=== PATIENT | female | born 1940 | race Caucasian/White ===

== ENCOUNTER → 2017-05-04 | Outpatient (CLI) | payer OTHER, MEDICAID ==
[2015-04-04 09:07] VITALS: BP 139/66
--- NOTE | 2017-05-04 15:24 | VAS ---
HISTORY: Carotid arterial disease. Study: Carotid ultrasound. Comparison: None available. Technique: Multiple maciel scale and color flow Doppler images of the right and left carotid arterial system were obtained. The vertebral arterial system was evaluated as well. Findings: Normal color flow Doppler is seen throughout the right and left carotid arterial system. Calcific p laque within the bilateral carotid bulbs. No hemodynamically significant stenosis is seen based on v elocity criteria. The right and left vertebral arteries demonstrate antegrade flow. IMPRESSION: 1. No hemodynamically significant stenosis. 2. Plaque burden as above. Reported By:
--- NOTE | 2017-05-05 10:32 | MG ---
HISTORY: SCREENING Comparison: November and December of 2015 as well as a remote exam from 2005 FINDINGS: Bilateral CC and MLO projections of the right and left breast were obtained. Heterogeneously dense fibroglandular tissue is seen to be present. There is no new developing mass or architectural disto rtion bilaterally. The previously described left breast nodule has resolved or nearly completely res olved. The previously described grouping of microcalcifications far posteriorly on the right superi or to the plane of the nipple on the MLO view is incompletely evaluated. Additionally, there is a ne w grouping of microcalcifications at approximately 11 o'clock at mid depth for which further evaluat ion is also recommended. There is an additional stable grouping of benign course and dystrophic micr ocalcifications at approximately 9 o'clock posteriorly. No skin thickening or nipple retraction is a ppreciated. No pathological lymphadenopathy can be identified. IMPRESSION: 2 groupings of right breast microcalcifications for which follow up spot magnification is recommended. ACR CATEGORY 0 - assessment incomplete; additional imaging recommended. Diagnostic CAD was utilized and reviewed. * 0 (ZERO) - ASSESSMENT INCOMPLETE; ADDITIONAL IMAGING IS NEEDED. * 1/1 (ONE) - NEGATIVE. * 2/II (TWO) - BENIGN FINDINGS. * 3/III (THREE) - PROBABLY BENIGN FINDING; SHORT INTERVAL FOLLOW-UP SUGGESTED. * 4/IV (FOUR) - SUSPICIOUS ABNORMALITY; BIOPSY SHOULD BE CONSIDERED. * 5/V (FIVE) - HIGHLY SUSPICIOUS OF MALIGNANCY; BIOPSY SHOULD BE PERFORMED. A NEGATIVE X-RAY REPORT SHOULD NOT DELAY BIOPSY IF A DOMINANT OR CLINICALLY SUSPICIOUS MASS IS PRESENT; 4 TO 8 PERCENT OF CANCERS ARE NOT IDENTIFIED BY X-RAY. A NEG ATIVE REPORT MAY REINFORCE THE CLINICAL IMPRESSION. ADENOSIS AND DENSE BREASTS MAY OBSCURE AN UNDER LYING NEOPLASM. Reported By:
== END ==
LOC: RAD 10:24
PROVIDERS: ATTEND Internal Medicine
DX: Z12.31 Encounter for screening mammogram for malignant neoplasm of breast (principal); I77.89 Other specified disorders of arteries and arterioles
CPT/HCPCS: 77067; 93880

== ENCOUNTER → 2017-05-25 | Outpatient (CLI) | payer OTHER, MEDICAID ==
[2015-04-04 09:07] VITALS: BP 139/66
--- NOTE | 2017-05-25 10:54 | MG ---
HISTORY: Abnormal screening mammography with new right breast microcalcifications Right breast digital diagnostic mammography. Comparison: May 04, 2017 and December 12, 2015 FINDINGS: Spot magnification CC and MLO projections of the Right breast were obtained. Heterogeneously dense fibroglandular tissue is seen to be present. There is no mass or architectural distortion. The more anterior microcalcifications are predominantly course and dystrophic with a similar appearing stabl e grouping more posteriorly most likely reflecting calcifying fibroadenomas, sclerosing adenosis, or fat necrosis and without suspicious fine linear branching pleomorphism. The more posterior microca lcifications only seen on the MLO view also demonstrates predominantly course and dystrophic forms b ut with a few amorphous microcalcifications consistent with mild pleomorphism but again with probabl y benign features for which 6 month follow up is recommended. No skin thickening or nipple retractio n is appreciated. No pathological lymphadenopathy can be identified. IMPRESSION: Probably benign right breast microcalcifications for which 6 month follow up right m[address] st mammography is recommended. ACR CATEGORY 3 - probably benign findings; short interval followup suggested. * 0 (ZERO) - ASSESSMENT INCOMPLETE; ADDITIONAL IMAGING IS NEEDED. * 1/1 (ONE) - NEGATIVE. * 2/II (TWO) - BENIGN FINDINGS. * 3/III (THREE) - PROBABLY BENIGN FINDING; SHORT INTERVAL FOLLOW-UP SUGGESTED. * 4/IV (FOUR) - SUSPICIOUS ABNORMALITY; BIOPSY SHOULD BE CONSIDERED. * 5/V (FIVE) - HIGHLY SUSPICIOUS OF MALIGNANCY; BIOPSY SHOULD BE PERFORMED. A NEGATIVE X-RAY REPORT SHOULD NOT DELAY BIOPSY IF A DOMINANT OR CLINICALLY SUSPICIOUS MASS IS PRESENT; 4 TO 8 PERCENT OF CANCERS ARE NOT IDENTIFIED BY X-RAY. A NEG ATIVE REPORT MAY REINFORCE THE CLINICAL IMPRESSION. ADENOSIS AND DENSE BREASTS MAY OBSCURE AN UNDER LYING NEOPLASM. Reported By:
== END ==
LOC: RAD 09:55
DX: R92.8 Other abnormal and inconclusive findings on diagnostic imaging of breast (principal)
CPT/HCPCS: 77066